=== PATIENT | female | born 1955 | race Caucasian/White ===

== ENCOUNTER 2017-04-07 15:43 | Outpatient (CLI) | payer OTHER ==
[~2017-04-07 15:43] MED LIST: SYN75 PO
== END 2017-04-07 19:31 | disposition home or self-care (01) ==
LOC: SMA 15:43
PROVIDERS: ATTEND Obstetrics & Gynecology Gynecology
DX: Z12.31 Encounter for screening mammogram for malignant neoplasm of breast (principal)
CPT/HCPCS: G0202

== ENCOUNTER 2018-04-29 13:22 | Outpatient (CLI) | payer OTHER | END 2018-04-29 20:42 | disposition home or self-care (01) | LOC: SMA 13:22 | PROVIDERS: ATTEND Obstetrics & Gynecology Gynecology | DX: Z12.31 Encounter for screening mammogram for malignant neoplasm of breast (principal) | CPT/HCPCS: 77067 ==

== ENCOUNTER 2019-07-06 08:27 | Outpatient (CLI) | payer OTHER | END 2019-07-06 17:52 | disposition home or self-care (01) | LOC: SMA 08:27 | DX: Z12.31 Encounter for screening mammogram for malignant neoplasm of breast (principal); N64.89 Other specified disorders of breast | CPT/HCPCS: 77067 ==

== ENCOUNTER 2019-07-12 13:25 | Outpatient (CLI) | payer OTHER | END 2019-07-12 21:13 | disposition home or self-care (01) | LOC: SUS 13:25 | PROVIDERS: ATTEND Obstetrics & Gynecology Gynecology | DX: R92.1 Mammographic calcification found on diagnostic imaging of breast (principal); R92.8 Other abnormal and inconclusive findings on diagnostic imaging of breast | CPT/HCPCS: 76641; 77065 ==

== ENCOUNTER 2020-10-10 08:10 | Outpatient (CLI) | payer OTHER | END 2020-10-10 20:30 | disposition home or self-care (01) | LOC: SMA 08:10 | PROVIDERS: ATTEND Obstetrics & Gynecology Gynecology | DX: R92.2 Inconclusive mammogram (principal); N64.89 Other specified disorders of breast | CPT/HCPCS: 76641; 77066 ==

== ENCOUNTER 2021-09-26 13:00 | Outpatient (CLI) | payer OTHER | END 2021-09-26 20:44 | disposition home or self-care (01) | LOC: SMA 13:00 | PROVIDERS: ATTEND Obstetrics & Gynecology Gynecology | DX: R92.2 Inconclusive mammogram (principal); N64.89 Other specified disorders of breast | CPT/HCPCS: 76641; 77066 ==

== ENCOUNTER 2022-10-09 11:16 | Outpatient (CLI) | payer OTHER | END 2022-10-09 13:27 | disposition home or self-care (01) | LOC: SMA 11:16 | PROVIDERS: ATTEND Obstetrics & Gynecology Gynecology | DX: Z12.39 Encounter for other screening for malignant neoplasm of breast (principal); R92.2 Inconclusive mammogram; N64.89 Other specified disorders of breast | CPT/HCPCS: 76641; 77067 ==

== ENCOUNTER 2023-11-19 11:36 | Outpatient (CLI) | payer OTHER | END 2023-11-19 18:35 | disposition home or self-care (01) | LOC: SMA 11:36 | PROVIDERS: ATTEND Specialist | DX: Z12.31 Encounter for screening mammogram for malignant neoplasm of breast (principal); R92.30 Dense breasts, unspecified | CPT/HCPCS: 76641; 77067 ==